=== PATIENT | female | born 1970 | race Caucasian/White ===

== ENCOUNTER 2021-02-08 14:14 | Emergency (ER) | payer OTHER, SELFPAY ==
--- NOTE | 2021-02-08 14:26 | XR_ITS ---
WS: [id number] Exam: XR chest 1V portable [id number] Date/Time of Exam: 02/08/2021 2:29 PM Reason For Exam: sob No priors. Patchy infiltrates are seen in the mid and lower lung zones bilaterally suggesting active pneumonia. Normal cardiomediastinal silhouette. No pleural effusions. No pneumothorax. Bony structures are intac t. XR/XR chest 1V portable [id number] IMPRESSION: 1. Bilateral infiltrates in the mid and lower lung zone suggesting pneumonia.
[2021-02-08 14:31] VITALS: BP 130/79; PULSE 125; RESP 22; O2SAT 74; BMI 27.4
--- NOTE | 2021-02-08 14:48 | ED_ITS ---
HPI - SOB/Dyspnea General: Chief Complaint: Shortness of Breath/Dyspnea Stated Complaint: COVID+ LOW O2 Time Seen by Provider: 02/08/21 14:34 Source: patient Mode of arrival: ambulatory Limitations: no limitations History of Present Illness: HPI Narrative: 50-year-old female states that she tested positive for Covid 9 days ago symptoms been going on roughly 11 days. She states that she has had increasing cough and dyspnea was seen at [facility] and sent here due to hypoxia her oxygen sat here is 74% on room air she is requiring 6 L at this time. She denies any pain anywhere denies any fever denies any vomiting or diarrhea denies any worsening treatment factors. Associated symptoms: Reports fever(s); Deny abdominal pain, chest pain, nausea or vomiting Review of Systems Const: Reports: fever(s), chills and body aches Eyes: Denies: blurry vision or eye discomfort ENMT: Denies: throat pain or dental pain Card: Denies: chest pain Resp: Reports: dyspnea and productive cough GI: Denies: abdominal pain, nausea, vomiting or diarrhea : Denies: dysuria Musc: Denies: neck pain or back pain Skin/Breast: Denies: rash Neuro: Denies: headache(s) Psych: Denies: depression Carlos/Lymph: Denies: easy bruising All/Imm: Denies: urticaria Physical Exam Const: COMMON NORMALS: patient oriented x3 GENERAL APPEARANCE: in distress and ill appearing HENMT: COMMON NORMALS: normocephalic and atraumatic HEAD & SCALP: normocephalic and atraumatic Eye: COMMON NORMALS: Equal, round and reactive pupils present and EOMs intact bilaterally PUPIL: Yes Equal, round and reactive pupils present Neck/C-Spine: COMMON NORMALS: full ROM and supple Chest: COMMONS NORMALS: normal inspection of the chest and normal palpation of entire chest wall Resp: COMMON NORMALS: No retractions and No use of accessory muscles EFFORT & INSPECTION: Yes tachypneic AUSCULTATION: rales Cardio: COMMON NORMALS: regular rhythm and No murmurs present (Cardio) RATE: tachycardic RHYTHM: regular rhythm GI: COMMON NORMALS: Normal to inspection, nondistended, normoactive bowel sounds present, Soft to palpation, non-tender and no masses PALPATION: Yes Soft to palpation Extremity: COMMON NORMALS: normal to inspection and full ROM Neuro: COMMON NORMALS: patient oriented x3, moves all extremities and no focal motor deficits Psych: COMMON NORMALS: mental status grossly normal, Normal thought process present and cooperative THOUGHT PROCESS: Normal thought process present Skin: COMMON NORMALS: no rashes or lesions noted and no wounds GENERAL SKIN EXAM: no rashes or lesions noted Course Vital Signs: Vital signs: Vital Signs Pulse Rate 109 H 02/08/21 15:53 Respiratory Rate 20 H 02/08/21 15:53 Blood Pressure 130/79 02/08/21 14:31 Pulse Oximetry 94 02/08/21 15:53 MDM - SOB/Dyspnea MDM Narrative: Medical decision making narrative: Patient presents here with Covid pneumonia patient also found to have pulmonary emboli. Patient is requiring high flow oxygen here. I did give patient Lovenox she has been stable here blood pressures been stable I spoke to physician Dr. Gonsales at [facility] and will transfer there has we have no bed availability. Lab Data: Labs: Lab Results 02/08/21 02/08/21 02/08/21 14:45 15:27 15:27 WBC 12.1 10^3/uL H 10 ^3/uL (4.0-10.0) RBC 4.51 10^6/uL 10^6 /uL (4.1-5.3) Hgb 14.1 g/dL g/dL (11.5-15.3) Hct 41.3 % % (37.0-47.0) MCV 91.6 fl fl (81-99) MCH 31.3 pg pg (28.0-34.0) MCHC 34.1 g/dL g/dL (30.0-36.0) RDW 13.5 % % (12.1-15.1) Plt Count 369 10^3/cmm 10^3 /cmm (130-400) MPV 10.5 fL H fL (7.4-10.4) Neut % (Auto) 82.1 % % Lymph % (Auto) 8.2 % % [place] % (Auto) 7.3 % % Eos % (Auto) 0.9 % % Baso % (Auto) 0.6 % % Neut # (Auto) 9.93 10^3/uL H 10 ^3/uL (1.8-7.7) Lymph # (Auto) 1.0 10^3/uL 10^3/ uL (0.8-4.8) [place] # (Auto) 0.9 10^3/uL 10^3/ uL (0.2-0.9) Eos # (Auto) 0.1 10^3/uL 10^3/ uL (0.0-0.8) Baso # (Auto) 0.1 10^3/uL 10^3/ uL (0.0-0.1) Nucleated RBC % (a uto) 0 % % Nucleated RBCs # 0.0 /100WBC /100W BC PT 14.60 SECONDS SEC ONDS (12.1-14.9) INR 1.10 (0.8-1.2) D-Dimer 7.79 ug/mIFEU H u g/mIFEU (0-0.59) Specimen Type Arterial Sample Site Brachial, right ABG pH 7.45 (7.35-7.45) ABG pCO2 36.0 mmHg mmHg (35-45) ABG pO2 59.6 mmHg L mmHg (80.0-100.0) ABG HCO3 24.7 mmol/L mmol/ L (22-26) ABG Base Excess 0.9 mmol/L mmol/L (-2.0-2.0) Sunny Test N/a Hematocrit 42.1 % % (37-47) O2 Delivery Device Nc O2 Liters/Min 6.0 % % FiO2 44.0 % % Computer Programming Supervisor ID Amh Sodium Potassium Chloride Carbon Dioxide Anion Gap BUN Creatinine GFR Calculation Glucose Calculated Osmolal ity Lactic Acid Calcium Total Bilirubin AST ALT Alkaline Phosphata se C-Reactive Protein NT-Pro-B Natriuret Pep Total Protein Albumin Globulin Procalcitonin 02/08/21 02/08/21 15:27 15:27 WBC RBC Hgb Hct MCV MCH MCHC RDW Plt Count MPV Neut % (Auto) Lymph % (Auto) [place] % (Auto) Eos % (Auto) Baso % (Auto) Neut # (Auto) Lymph # (Auto) [place] # (Auto) Eos # (Auto) Baso # (Auto) Nucleated RBC % (a uto) Nucleated RBCs # PT INR D-Dimer Specimen Type Sample Site ABG pH ABG pCO2 ABG pO2 ABG HCO3 ABG Base Excess Sunny Test Hematocrit O2 Delivery Device O2 Liters/Min FiO2 Computer Programming Supervisor ID Sodium 135 mmol/L L mmol /L (136-145) Potassium 3.5 mmol/L mmol/L (3.5-5.1) Chloride 96 mmol/L L mmol/ L (98-107) Carbon Dioxide 25 mmol/L mmol/L (22-29) Anion Gap 17.5 (5-19) BUN 14 mg/dL mg/dL (6-20) Creatinine 0.8 mg/dL mg/dL (0.5-0.9) GFR Calculation 75.3 mL/min L mL/ min (90-130) Glucose 130 mg/dL H mg/dL (65-115) Calculated Osmolal ity 282 mOsm/kg L mOs m/kg (285-295) Lactic Acid 1.3 mmol/L mmol/L (0.5-2.2) Calcium 7.9 mg/dL L mg/dL (8.5-10.5) Total Bilirubin 0.8 mg/dL mg/dL (0.15-1.2) AST 55 U/L H U/L (0-32) ALT 101 U/L H U/L (0-33) Alkaline Phosphata se 110 IU/L H IU/L (35-105) C-Reactive Protein 99.0 mg/L H mg/L (0.0-4.9) NT-Pro-B Natriuret Pep 51 pg/mL pg/mL (0-125) Total Protein 7.0 g/dL g/dL (6.6-8.7) Albumin 3.4 g/dL L g/dL (3.5-5.2) Globulin 3.6 g/dL g/dL (1.3-4.6) Procalcitonin 0.16 ng/mL ng/mL (0-0.5) Imaging Data^: CT Chest: Attestation: I personally reviewed and interpreted this imaging study as follo ws: Radiologist's impression: [address] [address] [address] Scan Report Signed Patient: Susan Cline Unit #: [id number] : 1970 Age/Sex: 50 / F ADM Date: 02/08/21 Loc: ER Room/Bed: Attending Dr: Ordering Provider/Ordering MD: Bharati Charles MD Date of Service: 02/08/21 Procedure(s): CT angio chest PE protcl [id number] Accession Number(s): [id number] Report Number: [id number] PROCEDURE INFORMATION: Exam: CTA Chest With Contrast Exam date and time: 02/08/2021 4:16 PM Age: 50 years old Clinical indication: Cough and shortness of breath; Patient HX: Covid+; Additional info: SOB TECHNIQUE: Imaging protocol: Computed tomographic angiography of the chest with contrast. 3D rendering (Not supervised by radiologist): MIP and/or 3D reconstructed images were created by the technologist. Radiation optimization: All CT scans at this facility use at least one of these dose optimization techniques: automated exposure control; mA and/or kV adjustment per patient size (includes targeted exams where dose is matched to clinical indication); or iterative reconstruction. Contrast material: OMNI 350; Contrast volume: 67 ml; Contrast route: INTRAVENOUS (IV); COMPARISON: CR (CHEST, ) 02/08/2021 3:31 PM RADIATION DOSE METRICS: Total DLP (mGy-cm): 969.95 FINDINGS: Pulmonary arteries: See Lungs finding. Aorta: Unremarkable. No aortic aneurysm. No aortic dissection. Lungs: There is scattered, bilateral, acute subsegmental pulmonary emboli, involving mainly the right lung. There is ground-glass opacities scattered throughout both lungs in a predominantly peripheral distribution, and with a more consolidated appearance in the lower lobes. Pleural spaces: Unremarkable. No pneumothorax. No pleural effusion. Heart: Unremarkable. No cardiomegaly. No evidence of right heart strain. No pericardial effusion. Lymph nodes: Reactive mediastinal and bilateral hilar lymphadenopathy noted. Diaphragm: A small hiatal hernia is present. Bones/joints: Degenerative changes of the spine seen. Soft tissues: Unremarkable. CT/CT angio chest PE protcl [id number] IMPRESSION: 1. Acute subsegmental pulmonary emboli scattered throughout both lungs, right greater than left. 2. Commonly reported imaging features of (COVID-19) pneumonia are present. Other processes such as influenza pneumonia and organizing pneumonia, as can be seen with drug toxicity and connective tissue disease, can cause a similar imaging pattern. Radiation Dose CTDIVOL = (mGy): DLP = 969.95 (mGy-cm) Dictated By: Geovanni Major Signed By: Geovanni Major Signed Date/Time: 1709 DD/ 1616 Discharge Plan Discharge Patient Disposition: Xfer Short-Term Hosp Clinical Impression: Pulmonary embolism, COVID-19 Condition: Stable Coding Level of Care Code ED Air Carrier Inspector for Alonso Fwd Exam Comprehensive
[2021-02-08 14:57] LABS: ABG PH Result 7.45 (7.35-7.45); Arterial Blood Gas Hematocrit 42.1 % (37-47); Base Excess ABG 0.9 mmol/L (-2.0-2.0); Blood Gas Operator Identificat AMH; Blood Gas Sample Site Brachial, right; Blood Gas Sample Type Arterial; HCO3 ABG 24.7 mmol/L (22-26); Oxygen Device NC; PO2 ABG 59.6 mmHg (80.0-100.0)
--- NOTE | 2021-02-08 15:25 | PC.PHAR ---
PT STATES SHE FINISHED THE PREDNISONE 20MG BID FILLED ON 01/30/21 5 D/S-PT STATES SHE TAKES NO RX MEDICATIONS
[2021-02-08] MEDS: dexamethasone 4 mg/mL INJ 6 MG IVP (15:28)
[2021-02-08 15:38] LABS: Basophils # 0.1 10^3/uL (0.0-0.1); Basophils % 0.6 %; Eosinophils # 0.1 10^3/uL (0.0-0.8); Eosinophils % 0.9 %; Hematocrit 41.3 % (37.0-47.0); Hemoglobin 14.1 g/dL (11.5-15.3); Lymphocytes % 8.2 %; Mean Corpuscular HGB Conc 34.1 g/dL (30.0-36.0); Mean Corpuscular Hemoglobin 31.3 pg (28.0-34.0); Mean Corpuscular Volume 91.6 fl (81-99); Mean Platelet Volume 10.5 fL (7.4-10.4); Monocytes # 0.9 10^3/uL (0.2-0.9); Monocytes % 7.3 %; Neutrophils # 9.93 10^3/uL (1.8-7.7); Neutrophils % 82.1 %; Nucleated Red Blood Cells % 0 %; Platelet Count 369 10^3/cmm (130-400); Red Blood Count 4.51 10^6/uL (4.1-5.3); Red Cell Distribution Width 13.5 % (12.1-15.1); White Blood Count 12.1 10^3/uL (4.0-10.0)
[2021-02-08] MEDS: albuterol 8 gm MDI 2 PUFF INHALATION (15:52)
[2021-02-08 15:53] VITALS: PULSE 109; RESP 20; O2SAT 94
[2021-02-08 16:09] LABS: Lactic Sepsis W/Reflex 1.3 mmol/L (0.5-2.2)
[2021-02-08 16:14] LABS: D Dimer 7.79 ug/mIFEU (0-0.59)
--- NOTE | 2021-02-08 16:16 | CTR_ITS ---
PROCEDURE INFORMATION: Exam: CTA Chest With Contrast Exam date and time: 02/08/2021 4:16 PM Age: 50 years old Clinical indication: Cough and shortness of breath; Patient HX: Covid+; Additional info: SOB TECHNIQUE: Imaging protocol: Computed tomographic angiography of the chest with contrast. 3D rendering (Not supervised by radiologist): MIP and/or 3D reconstructed images were created by the technologist. Radiation optimization: All CT scans at this facility use at least one of these dose optimization techniques: automated exposure control; mA and/or kV adjustment per patient size (includes targeted exams where dose is matched to clinical indication); or iterative reconstruction. Contrast material: OMNI 350; Contrast volume: 67 ml; Contrast route: INTRAVENOUS (IV); COMPARISON: CR (CHEST, ) 02/08/2021 3:31 PM RADIATION DOSE METRICS: Total DLP (mGy-cm): 969.95 FINDINGS: Pulmonary arteries: See Lungs finding. Aorta: Unremarkable. No aortic aneurysm. No aortic dissection. Lungs: There is scattered, bilateral, acute subsegmental pulmonary emboli, involving mainly the right lung. There is ground-glass opacities scattered throughout both lungs in a predominantly peripheral distribution, and with a more consolidated appearance in the lower lobes. Pleural spaces: Unremarkable. No pneumothorax. No pleural effusion. Heart: Unremarkable. No cardiomegaly. No evidence of right heart strain. No pericardial effusion. Lymph nodes: Reactive mediastinal and bilateral hilar lymphadenopathy noted. Diaphragm: A small hiatal hernia is present. Bones/joints: Degenerative changes of the spine seen. Soft tissues: Unremarkable. CT/CT angio chest PE protcl [id number] IMPRESSION: 1. Acute subsegmental pulmonary emboli scattered throughout both lungs, right greater than left. 2. Commonly reported imaging features of (COVID-19) pneumonia are present. Other processes such as influenza pneumonia and organizing pneumonia, as can be seen with drug toxicity and connective tissue disease, can cause a similar imaging pattern. Radiation Dose CTDIVOL = (mGy): DLP = 969.95 (mGy-cm)
[2021-02-08 16:20] LABS: NT Pro B Type Natriuretic Pept 51 pg/mL (0-125); Procalcitonin 0.16 ng/mL (0-0.5)
[2021-02-08 16:31] LABS: Alanine Aminotransferase 101 U/L (0-33); Albumin Level 3.4 g/dL (3.5-5.2); Alkaline Phosphatase 110 IU/L (35-105); Aspartate Amino Transferase 55 U/L (0-32); Blood Urea Nitrogen 14 mg/dL (6-20); Calcium 7.9 mg/dL (8.5-10.5); Carbon Dioxide 25 mmol/L (22-29); Chloride 96 mmol/L (98-107); Creatinine Clr Calc Pharmacy 74.3787; Globulin 3.6 g/dL (1.3-4.6); Glomerular Filtration Rate 75.3 mL/min (90-130); Glucose 130 mg/dL (65-115); Osmolality Calculated 282 mOsm/kg (285-295); Sodium 135 mmol/L (136-145); Total Bilirubin 0.8 mg/dL (0.15-1.2)
[2021-02-08] MEDS: iohexol 350 mg/mL 100 mL Btl IV ×2 (16:44→16:45)
[2021-02-08 16:55] LABS: Anion Gap 17.5 (5-19); Potassium 3.5 mmol/L (3.5-5.1)
[2021-02-08] MEDS: enoxaparin 80 mg/0.8 mL Syringe 70 MG SUBCUT (18:43)
[2021-02-08 18:45] VITALS: BP 110/82; PULSE 64; RESP 16; O2SAT 95
[2021-02-08] MEDS: remdesivir 200 MG in sodium chloride 0.9% (100 ml) 60 ML 100 MG IV (20:00)
[2021-02-08 20:44] VITALS: BP 108/77; PULSE 98; RESP 20; O2SAT 93
[2021-02-08 21:33] VITALS: BP 108/77; PULSE 98; RESP 20; O2SAT 94
== END 2021-02-08 21:39 | disposition short-term general hospital (02) ==
PROVIDERS: Emergency Provider Emergency Medicine
DX: U07.1 COVID-19 (principal); I26.99 Other pulmonary embolism without acute cor pulmonale
CPT/HCPCS: 36600; 71045; 71275; 80053; 82803; 83605; 83880; 84145; 85025; 85378; 85610; 86140; 94640; 96365; 96372; 96375; 99285; J1100; J1650; J3535; Q9967